=== PATIENT | female | born 1990 | race Caucasian/White ===

== ENCOUNTER 2022-01-16 08:39 | Outpatient (CLI) | payer BC, SELFPAY ==
[2022-01-17 14:49] LABS: Strep B DNA Probe NEGATIVE (Negative)
== END 2022-01-16 08:40 | disposition home or self-care (01) ==
LOC: NFLDREF 08:40
PROVIDERS: PCP Internal Medicine; Visit Provider Registered Nurse
DX: O98.513 Other viral diseases complicating pregnancy, third trimester (principal); Z3A.37 37 weeks gestation of pregnancy
CPT/HCPCS: 76816; 76819; 87081; 87653

== ENCOUNTER 2022-01-23 14:39 | Outpatient (CLI) | payer BC, SELFPAY ==
[2022-01-23 14:51] VITALS: BP 126/75; PULSE 107
[2022-01-23 15:12] VITALS: BP 131/76; PULSE 112
[2022-01-23 15:23] LABS: Creatinine Urine 85.1 mg/dL; Total Protein Urine 18 mg/dL
[2022-01-23 15:25] VITALS: BP 123/72; PULSE 113
[2022-01-23 15:35] LABS: Hematocrit 36.2 % (33.0-51.0); Hemoglobin* 12.6 gm/dL (12.0-16.0); Mean Corpuscular HGB Conc 35 gm/dL (32-36); Mean Corpuscular Hemoglobin 33 pg (26-34); Mean Corpuscular Volume 93 fL (80-100); Platelet Count* 178 K/uL (140-440); Red Blood Count 3.88 m/uL (4.00-5.20); Slide Review Reflex No; White Blood Count* 9.26 K/uL (4.50-11.00)
[2022-01-23 15:39] VITALS: BP 132/85; PULSE 100
[2022-01-23 15:45] LABS: Alanine Aminotransferase* 16 U/L (4-35); Aspartate Amino Transferase* 21 U/L (12-35); Blood Urea Nitrogen* 7 mg/dL (5-24); Creatinine* 0.6 mg/dL (0.5-1.5); Estimated Glomerular Filt Rate 122 ml/min
[2022-01-23 15:55] VITALS: BP 138/81; PULSE 106
--- NOTE | 2022-01-23 16:42 | PC.OBNST ---
NST Note NST Note Start: 01/23/22 14:49 Freq: ONCE Status: Active Protocol: Document 01/23/22 16:19 BECKY (Rec: 01/23/22 16:24 [facility] [place] [id number][facility] NST Note 2 Para (# of births) 0 EDC 02/12/22 Patient Presented with Complaint(s) of Other Other Complaints Elevated BP, rule put preeclampsia Reactive Yes Appropriate for Gestational Age Yes KODI Whitehead Date 01/23/22 Reactive Yes Appropriate for Gestational Age Yes KODI Rose RN Date 01/23/22 OB NST charge Yes Provider Evaluation of EFM Strip: Reactive: [] Appropriate for Gestational Age: [] Comments:
== END 2022-01-23 16:00 | disposition home or self-care (01) ==
LOC: OB OUT 14:41 → OB 14:42 → OB OUT 23:45
PROVIDERS: PCP Internal Medicine; Visit Provider Obstetrics & Gynecology
DX: O99.213 Obesity complicating pregnancy, third trimester (principal); Z3A.37 37 weeks gestation of pregnancy
CPT/HCPCS: 36415; 59025; 82565; 84156; 84450; 84460; 84520; 85027; 99213

== ENCOUNTER 2022-01-24 10:48 | Outpatient (CLI) | payer BC, SELFPAY ==
[2022-01-24] VITALS (9 sets, daily range): BP systolic 126–133; BP diastolic 76–85; PULSE 93–117; RESP 16; TEMP 37.2; O2SAT 97–98
== END 2022-01-24 12:15 | disposition home or self-care (01) ==
LOC: OB OUT 10:48 → OB 10:49
PROVIDERS: PCP Internal Medicine; Visit Provider Obstetrics & Gynecology
DX: O98.513 Other viral diseases complicating pregnancy, third trimester (principal); U07.1 COVID-19; Z3A.37 37 weeks gestation of pregnancy
CPT/HCPCS: 59025; 99213

== ENCOUNTER 2022-01-25 09:30 | Inpatient (IN) | payer BC, MEDICAID, SELFPAY ==
[2022-01-24 23:51] VITALS: BP 140/78; PULSE 106; RESP 18; TEMP 37.4; O2SAT 98
[2022-01-24 23:52] VITALS: BP 140/78; PULSE 100
[2022-01-24 23:53] VITALS: PULSE 103; O2SAT 98
[2022-01-25] VITALS (60 sets, daily range): BP systolic 75–152; BP diastolic 38–107; PULSE 77–129; RESP 20; TEMP 36.4–36.8; O2SAT 91–100; BMI 47.0
[2022-01-25 00:55] LABS: Hemoglobin* 11.6 gm/dL (12.0-16.0); Mean Corpuscular HGB Conc 34 gm/dL (32-36); Mean Corpuscular Hemoglobin 32 pg (26-34); Mean Corpuscular Volume 94 fL (80-100); Platelet Count* 158 K/uL (140-440); Red Blood Count 3.61 m/uL (4.00-5.20); White Blood Count* 8.79 K/uL (4.50-11.00)
[2022-01-25 01:10] LABS: INR 0.96 (0.91-1.10); Prothrombin Time 13.2 Seconds
[2022-01-25 01:11] LABS: Fibrinogen* 495 mg/dL (200-450)
[2022-01-25 01:12] LABS: Total Protein Urine 104 mg/dL
[2022-01-25 01:12] LABS: Alanine Aminotransferase* 15 U/L (4-35); Aspartate Amino Transferase* 20 U/L (12-35); Blood Urea Nitrogen* 6 mg/dL (5-24); Creatinine* 0.5 mg/dL (0.5-1.5); Estimated Glomerular Filt Rate 127 ml/min
[2022-01-25 01:13] LABS: Creatinine Urine 20.9 mg/dL
[2022-01-25] MEDS: CALCIUM CARBONATE 500 MG CHEW PO (02:05)
--- NOTE | 2022-01-25 02:22 | PC.NURSE ---
Danielle Montemayor RNC contacted Sulaiman HAJI regarding PCR of 4.9 which was increased from 0.2 on 01/23/22. aware that pt had BP >140/90 in clinic on 01/23 and BP 140/78 on admission on 01/25. Repeat BP's WNL. Pt now meets criteria for pre-eclampsia. aware that pt has new onset epigastric pain that comes and goes and increased swelling in her hands and feet. MD aware pt has headache as well. Verbal order from MD to d/c pt home and pt to call in AM to schedule IOL next week. Will place pt as observation overnight and discuss possible IOL with MD in AM r/t new diagnosis of pre-eclampsia. Will keep pt on continuous monitoring overnight and monitor BP's hourly per pre-eclampsia protocol. Strict I&O per protocol. Aida Montemayor, RNC
[2022-01-25 04:08] LABS: Slide Review Reflex No
--- NOTE | 2022-01-25 09:17 | W.PM.LDBA ---
Subjective History of Present Illness Time Seen by Provider: 09:18 Date Seen: 01/25/22 Narrative: Emilia is a 32yo with gestational hypertension in third trimester. She presented to triage with complaints of swelling, JONES not treated with analgesics. She denies visual changes, epigastric pain. Blood pressures intermittently elevated; SBP the past day 118-140, DBP 70-90. Urine protein: creatinine ratio today 4.90; remainder of renal labs wnl. AST 20, ALT 15. Platelets 158. Denies vaginal blood, watery fluid. Female fetus, 37w3d GA, is moving actively. complicated by morbid obesity, BMI 43, elevated BP at 13w visit. She has been taking ASA 81 since. GBS negative. Mild intermittent asthma. Anxiety. Patient's full history and physical was dictated by Dr. Bravo on 01.23.2022; please see this for more details. OB - H&P: Exam Physical Exam: Vital signs: Temp Pulse Resp BP Pulse Ox 98 F 99 18 140/78 H 98 01/25/22 07:25 01/25/22 08:50 01/24/22 23:51 01/25/22 08:50 01/24/22 23:53 Constitutional: Constitutional: no acute distress, morbidly obese and cooperative Routine HEENT Exam: Head: Present normal inspection Routine Neck Exam: Neck: Present full ROM Routine Respiratory Exam: Comments: Normal respirations. No accessory muscle use, cough, or wheezing. Routine Cardiovascular Exam: Comments: SBP elevated. Normal pulse peripheral pulses. Mild non-pitting pedal edema. Routine Abdominal Exam: Comments: Gravid, size consistent with dates. Soft, non-tender throughout. Estimated size LGA. Detailed Labor and Delivery Exam: Patient Gravid: yes Dilation (cm): 2 Effacement (%): 30 Cervix position: posterior Consistency: firm Cervical ripeness score: 1 Comments: Uterine irritability, no palpable or subjective contractions. Fetus (Single): Station: -4 Monitor Accelerations: Present Monitor Decelerations: None Group Home Variability: Moderate (11-25) Routine Extremities Exam: Extremities: Present normal inspection Routine Skin Exam: Present intact, warm and normal turgor Routine Neurological Exam: Present alert, CN II-XII intact, normal tone and normal speech Routine Psychiatric Exam: Present normal affect, normal thought process and cooperative OB - Problem Based A/P Additional Plan (1) BMI 40.0-44.9, adult: Status: Acute Plan: Goal is vaginal . Risks and benefits of discussed. (2) Pre-eclampsia affecting childbirth: Problem details: Labile BP the past day: 118/70 to 140/93. Proteinuria evidenced by urinary protein/creatinine ration 4.90. No severe feature. Magnesium sulfate not indicated. Status: Acute Plan: Risks and benefits of induction of labor discussed with patient and , and all questions answered to her satisfaction; she gave verbal consent to proceed with cervical ripening. (3) Large for gestational age fetus: Status: Acute Plan: Goal is vaginal . Risks and benefits of discussed. Plan Admit to Center for induction of labor. Will start with oral misoprostol, consider Cervidil, Cook catheter, AROM, Pitocin. No GBS antibiotics needed.
--- NOTE | 2022-01-25 10:38 | PM.OBPNL ---
Pain Control Date Seen: 01/25/22 Contractions Monitor mode: External Contraction pattern: Irregular Contraction intensity: Mild Pelvic Exam Dilation (cm): 2 Effacement (%): 70 Station: -2 Comments: anterior, soft consistency Assessment and Plan Assessment: induction ongoing Comments: Haskins score 8; ripening not needed. Will begin Pitocin. Comfort measures as desired.
[2022-01-25] MEDS: OXYTOCIN 30 unit/500 ML in NS 30 UNIT/500 ML BAG IVPB (11:04)
[2022-01-25] MEDS: LACTATED RINGERS 1000 ML 1,000 ML 125 ML IV (11:05)
[2022-01-25 11:51] LABS: Mean Corpuscular HGB Conc 34 gm/dL (32-36); Mean Corpuscular Hemoglobin 32 pg (26-34); Mean Corpuscular Volume 94 fL (80-100); Platelet Count* 160 K/uL (140-440); Red Blood Count 3.73 m/uL (4.00-5.20); White Blood Count* 8.31 K/uL (4.50-11.00)
[2022-01-25 11:53] LABS: Slide Review Reflex No
[2022-01-25 12:50] LABS: SARS PCR* Negative SARS-CoV-2 (Negative)
[2022-01-25] MEDS: LIDOCAINE 2% (PF) 5 ML VIAL EPIDURAL (17:54)
[2022-01-25] MEDS: ROPIVACAINE 0.2% 100 ml 100 ML 12 MG EPIDURAL (17:58)
[2022-01-25] MEDS: PHENYLEPHRINE 100 MCG/ML SYRINGE IVP ×3 (18:02→18:21)
--- NOTE | 2022-01-25 18:10 | PM.ANBPRC ---
[facility] Medical History (Updated 01/25/22 @ 10:01 by Magan Hilario MD) Elevated blood pressure reading without diagnosis of hypertension Social History Smoking Status: Never smoker Meds Home Medications and Allergies Home Medications Medication Instructions Recorded Confirmed Type aspirin 81 mg tablet,delayed 81 mg PO QDAY 12/26/21 01/23/22 History release docusate sodium 100 mg capsule 100 mg PO QDAY 12/26/21 01/23/22 History (Colace) polyethylene glycol 3350 17 4 g PO ONCE 12/26/21 01/23/22 History gram/dose oral powder (Miralax) prenat.vits,nahomy,wza-uweg-sjfgx 1 tab PO QDAY 12/26/21 01/23/22 History Allergies Allergy/AdvReac Type Severity Reaction Status Date / Time penicillin V Allergy Severe Swell up Verified 01/23/22 14:14 Results Labs Labs: Laboratory Results - last 24 hr 01/25/22 01/25/22 01/25/22 00:50 00:50 00:50 WBC 8.79 RBC 3.61 L Hgb 11.6 L Hct 34.0 MCV 94 MCH 32 MCHC 34 Plt Count 158 INR 0.96 Fibrinogen 495 H BUN 6 Creatinine 0.5 Estimated GFR 127 AST 20 ALT 15 Urine Creatinine Protein/Creatinin Ratio Urine Total Protein SARS-CoV-2 (PCR) Blood Type Antibody Screen 01/25/22 01/25/22 01/25/22 10:08 11:42 11:42 WBC 8.31 RBC 3.73 L Hgb 12.0 Hct 35.0 MCV 94 MCH 32 MCHC 34 Plt Count 160 INR Fibrinogen BUN Creatinine Estimated GFR AST ALT Urine Creatinine Protein/Creatinin Ratio Urine Total Protein SARS-CoV-2 (PCR) Negative SARS-CoV-2 Blood Type A Positive Antibody Screen NEGATIVE 01/25/22 Unknown WBC RBC Hgb Hct MCV MCH MCHC Plt Count INR Fibrinogen BUN Creatinine Estimated GFR AST ALT Urine Creatinine 20.9 Protein/Creatinin Ratio 4.90 H Urine Total Protein 104 SARS-CoV-2 (PCR) Blood Type Antibody Screen Vital Signs Vital Signs: Last Vital Signs Temp 98.3 F 01/25/22 16:16 Pulse 88 01/25/22 18:09 Resp 20 01/25/22 14:38 BP 106/56 L 01/25/22 18:09 Pulse Ox 97 01/25/22 17:57 Weight: 124.284 kg Height: 162.56 cm Anesthesia Procedures Epidural Insertion Patient Location: OB Start Time: 17:15 Stop Time: 18:15 Start Date: 01/25/22 Stop Date: 01/25/22 Reason for Block: procedure for pain Patient Position: sitting Performed By: Lilian Abreu Preanesthetic Checklist: IV checked, risks and benefits discussed, surgical consent, monitors and equipment checked, pre-op evaluation, timeout performed and anesthesia consent Prep: chlorhexidine gluconate Monitoring: blood pressure monitoring, continuous pulse oximetry and heart rate Approach: midline Vertebral Space: lumbar (1-5) Epidural Technique: ANGÉLICA saline Needle Type: Tuohy needle Injection Technique: continuous catheter (continuous catheter) Needle gauge: 17 Needle Length (cm): 10 cm Needle Insertion Depth (cm): 9 Catheter Gauge: 18 Catheter Type: multi-orifice Catheter at skin depth (cm): 18 Test Dose Result: negative and lidocaine 1.5% with epinephrine 1 to 200,000
[2022-01-25] MEDS: LACTATED RINGERS 1000 ML 1,000 ML 900 ML IV (18:19)
[2022-01-25] MEDS: ePHEDrine sulfate 5 MG/ML inj 10 MG IVP ×2 (18:58→19:04)
[2022-01-25] MEDS: ONDANSETRON 2 MG/ML inj 4 MG IV (19:04)
--- NOTE | 2022-01-25 20:13 | PM.OBPNL ---
Pain Control Time Seen by Provider: 20:13 Date Seen: 01/25/22 Comments: 32yo admitted for IOL due to preeclampsia. Female fetus at 37w3d. Comfortable with epidural. Pitocin off after brief decel to 60s. Contractions Monitor mode: External Contraction frequency: 2 Contraction pattern: Irregular Contraction intensity: Mild Pelvic Exam Dilation (cm): 4 Effacement (%): 70 Station: -1 Fetus (Single) Amniotic Membrane Status: AROM status: Category l Assessment and Plan Assessment: induction ongoing Comments: Consider Pitocin augmentation if inadequate progress.
[2022-01-25] MEDS: LACTATED RINGERS 1000 ML 1,000 ML 115 ML IV (20:31)
[2022-01-26] VITALS (64 sets, daily range): BP systolic 107–137; BP diastolic 57–86; PULSE 81–133; RESP 15–16; TEMP 36.4–37.4; O2SAT 95–98
[2022-01-26] MEDS: ONDANSETRON 2 MG/ML inj 4 MG IV ×2 (00:06→04:47)
[2022-01-26] MEDS: ROPIVACAINE 0.2% 100 ml 100 ML 12 MG EPIDURAL (01:59)
--- NOTE | 2022-01-26 06:50 | PM.OBPNL ---
Pain Control Time Seen by Provider: 06:50 Date Seen: 01/26/22 Pain control: tolerating well and epidural Contractions Monitor mode: External Contraction frequency: 2 Contraction pattern: Regular Contraction intensity: Moderate Pelvic Exam Comments: Emilia has been complete and pushing for 3 hours. In the past 1.5 hour, descent has arrested at +2 station despite maternal repostioning and some rotation. Adequate maternal effort. Large EFW precludes vacuum assistance. Discussion held regarding risks, benefits of relative to continuing current trial of labor for vaginal . All patient questions answered to her satisfaction; she gave signed informed consent to proceed to OR for primary low-transverse section. Charge nurse, OR team, provider notified. IV antibiotics ordered to start immediately. Fetus (Single) Amniotic Membrane Status: AROM status: Category l Assessment and Plan Pitocin rate (mU/min): 6 Comments: To OR for PLTCS because of arrest of descent in Stage 2.
--- NOTE | 2022-01-26 06:59 | PM.PROC ---
Procedure Note Date Seen: 01/26/22 Date of procedure: 01/26/22 Will [facility] bill your pro fee for this procedure?: Yes Pre-op diagnosis: 32yo with arrest of descent during Stage 2 of labor. Procedure: PROCEDURE: Primary low transverse Caesarean section. SURGEON: Sulaiman FACILITIES MANAGER: TERESITA Benavides CARBURETOR EXPERT: Hira . ANESTHESIA: Epidural, postop TAP block. FLUIDS: 700 mL crystalloid QBL: 1150 mL URINE: 100 pink-tinged intraop. SPECIMEN: None FINDINGS: Viable, vigorous female with Apgars of 8 at 1 minute and 9 at 5 minutes; LGA, weighing 3470 g. Anterior 1cm subserosal uterine fibroid. Normal appearing bilateral ovaries and tubes. COMPLICATIONS: None apparent. Procedure Description: After discussion risks and delivery, all patient questions answered to satisfaction. She gave signed informed consent proceed to the OR. IV antibiotics were administered. Patient brought to OR by nayney her epidural in place. She was placed supine on the OR table. Hernandez catheter was placed. She was prepped and draped in the usual fashion. Epidural was bolused; adequate anesthetic affect verified. A time-out was held. A Pfannenstiel skin incision was made with scalpel and carried sharply to the anterior rectus fascia, which was nicked in the midline. The fascial incision was extended bilaterally with curved scissors. The rectus muscles were divided sharply and bluntly with superior/inferior traction. The peritoneum was opened bluntly. The incision was stretched with bilateral finger traction. An Raimro retractor was placed, after confirming absence of maternal tissue between the retractor and the abdominal wall. A midline low transfers hysterotomy was made, and extended bilaterally with bandage scissors. Clear amniotic fluid was noted. Superior pressure on the shoulders did not elevate her head from maternal pelvis; an recruitment assistant's hand through the vagina provided pressure to dislodge crown from the bony pelvis. head was gently guided through the hysterotomy, and body was delivered with assistance of fundal pressure. The was dried and stimulated; her cord was clamped cut. She was brought to the warmer. The uterine cavity was cleared of clot and debris, using moistened sponge. A 2cm left inferior extension of the hysterotomy was closed with running locking 0 Vicryl. The transverse hysterotomy was then closed with running locking 0 Vicryl; a second horizontal imbricating layer of the same suture was placed. Excellent hemostasis was noted. The peritoneum was reapproximated with running 3-0 plain gut. The fascial was closed with running 0 PDS by halves, tying in the midline. The subcutaneous tissue was reinforced with running 3-0 plain gut. The skin was closed with running subcuticular 4-0 Monocryl. A Mepilex island dressing was placed. All instrument, sharp, and sponge counts were correct at the conclusion of the case. The patient tolerated the procedure well; she remained in the OR in stable condition for TAP block by Anesthesia. Anesthesia: regional Surgeon: Magan Hilario MD Pathology: none sent Condition: stable Disposition: floor
[2022-01-26] MEDS: CEFAZOLIN 3 GM in 0.9 % SODIUM CHLORIDE Mini-bag 100 ML IVPB (07:23)
[2022-01-26] MEDS: AZITHROMYCIN 100 MG/ML inj 500 MG IVPB (08:00)
[2022-01-26] MEDS: KETOROLAC 30 MG/ML inj IVP ×2 (08:35→14:50)
--- NOTE | 2022-01-26 09:34 | SUR.OPER ---
THIS SUPERVISOR PIPELINE WAS NOT ABLE TO ADD THE CORRECT MD TO THIS CASE. DR. SIMON BROWN WAS THE ACTUAL DOCTOR FOR THIS CASE NOT DR. TORRES. THIS CORRECTION WILL BE MADE TOMORROW WITH THE HELP OF AN EXPANSE SUPER USER. PATIENT'S BUTT CATHETER WAS PLACED BY THIS SUPERVISOR PIPELINE AT 07:50. TOTAL BUTT OUTPUT FOR THIS CASE WAS 100ML (PER Hira MOORE CRNA).
--- NOTE | 2022-01-26 09:45 | W.ANESCHARGE ---
Anesthesia Charges Start Date/Time Anesthesia Start Date: 01/26/22 Anesthesia Start Time: 07:35 Stop Date/Time Anesthesia Stop Date: 01/26/22 Anesthesia Stop Time: 09:21 Summary Emergency: Yes
--- NOTE | 2022-01-26 09:47 | W.PM.NB ---
Nerve Block Nerve Block Time Seen by Provider: 08:58 Date Seen: 01/26/22 Type of block requested by surgeon for post-operative analgesia: TAP Side: bilateral Time out performed: Yes Verification of patient name: Yes Verification of date of : Yes Name of person performing procedure: mariaelena gabriel Continuous monitoring Was continuous monitoring of O2 sat, B/P, quality assurance monitor, recorded every 15 minutes?: Yes Procedure Checklist: sterile prep, needles and gloves Ultrasound guided. Images saved: Yes Medications given in 5ml increments after negative aspiration: Marcaine (25 ml/side) %: 0.25 mL: 25 Needle gauge: 22 and Exparel (5 ml/side) mL: 5 Needle gauge: 22 Patient tolerated procedure well: Yes Block Charges Block Charge (with Pro Fee): TAP Bilateral Use of Ultrasound Machine for Block: Yes- US Guidance/pain block
[2022-01-26] MEDS: LACTATED RINGERS 1000 ML 1,000 ML 125 ML IV (14:32)
[2022-01-26] MEDS: ENOXAPARIN 40 MG/0.4 ML INJ SUBCUT (21:34)
[2022-01-26] MEDS: ACETAMINOPHEN 500 MG TABLET 1000 MG PO (23:38)
[2022-01-27] VITALS (14 sets, daily range): BP systolic 121–133; BP diastolic 83–89; PULSE 95–111; RESP 15–16; TEMP 36.5–37; O2SAT 97–98
[2022-01-27] MEDS: IBUPROFEN 600 MG TABLET 800 MG PO ×3 (02:30→19:21)
[2022-01-27] MEDS: ACETAMINOPHEN 500 MG TABLET 1000 MG PO ×3 (06:15→15:28)
[2022-01-27 07:21] LABS: Hematocrit 28.9 % (33.0-51.0); Hemoglobin* 9.8 gm/dL (12.0-16.0); Red Blood Count 3.02 m/uL (4.00-5.20); White Blood Count* 12.94 K/uL (4.50-11.00)
[2022-01-27 07:22] LABS: Basophils Percent Auto 0.2 % (0.0-3.0); Eosinophils Percent Auto 0.7 % (0.0-7.0); Immature Granulocytes Pct Auto 1.3 %; Lymphocytes Percent Auto 15.4 % (20-44); Mean Corpuscular HGB Conc 34 gm/dL (32-36); Mean Corpuscular Hemoglobin 33 pg (26-34); Mean Corpuscular Volume 96 fL (80-100); Monocytes Percent Auto 7.4 % (0.0-11.0); Platelet Count* 155 K/uL (140-440); Slide Review Reflex No
--- NOTE | 2022-01-27 07:39 | PM.OBPNCS1 ---
OB - PN: A/P Assessment and Plan (1) BMI 40.0-44.9, adult: Status: Acute (2) Pre-eclampsia affecting childbirth: Problem details: Labile BP the past day: 118/70 to 140/93. Proteinuria evidenced by urinary protein/creatinine ration 4.90. No severe feature. Magnesium sulfate not indicated. Status: Acute (3) Large for gestational age fetus: Status: Acute Plan Plan: routine postop care OB - PN: Subj Subjective Date Seen: 01/27/22 Patient comments: no complaints, pain well controlled, tolerating diet and flatus present status: bottle (started pumping over night) feeding status: expressed and bottle feeding Narrative: The patient feels well.? The pain is well controlled with current medications.?She has not needed PRN narcotics for pain control so far. She has no new complaints.? Urinary output is adequate and she is voiding without difficulty.? Has a good appetite, is tolerating a general diet, is passing flatus, and has not had a bowel movement.? Has?small amount of rubra lochia.? She is ambulating well. She has a history of constipation during . She had used senna BID and Miralax once a day to manage her constipation during and requested to continue this in the post period. She is bottle feeding and started pumping last night. She would like to exclusively pump. She would like to consider discharge tomorrow. OB - PN: Obj Exam Physical Exam: Vital signs: Temp Pulse Resp BP Pulse Ox O2 Del Method 97.8 F 95 16 121/83 97 01/27/22 06:00 01/27/22 06:00 01/27/22 06:00 01/27/22 06:00 01/27/22 06:00 01/27/22 06:00 Constitutional: Constitutional: no acute distress Routine Respiratory Exam: Respiratory: Present CTA bilaterally Routine Cardiovascular Exam: Cardiovascular: Present RRR Routine Abdominal Exam: Fundus: Present firm (U/2) Routine Exam: Patient deferred: external exam Routine Extremities Exam: Extremities: Present full ROM Detailed Upper Extremity Exam: Comments: 1+ swelling in hands bilaterally Routine Back/Spine/Pelvis Exam: Back/Spine: Present full ROM Routine Psychiatric Exam: Psychiatric: Present normal affect and normal thought process Wound Management: Examination: Present dressed, clean, dry and intact Urinary Catheter Management: Urethral: Cath placed during this visit: no Urethral indwelling: No OB - PN: Obj Data Labs Labs: Laboratory Results - last 24 hr 01/27/22 06:25 WBC 12.94 H RBC 3.02 L Hgb 9.8 L Hct 28.9 L MCV 96 MCH 33 MCHC 34 Plt Count 155 Neut % (Auto) 75.0 H Lymph % (Auto) 15.4 L [place] % (Auto) 7.4 Eos % (Auto) 0.7 Baso % (Auto) 0.2 Neut # (Auto) 9.70 H Lymph # (Auto) 2.00 [place] # (Auto) 1.00 H Eos # (Auto) 0.10 Baso # (Auto) 0.00 Abs Immat Gran (auto) 0.20 Imm/Tot Granulo (auto) 1.3
[2022-01-27] MEDS: DOCUSATE SODIUM 100 MG CAPSULE PO ×2 (09:20→21:30)
[2022-01-27] MEDS: polyethylene glycoL 3350 17 GM PACK PO (13:25)
[2022-01-27] MEDS: ENOXAPARIN 40 MG/0.4 ML INJ SUBCUT (22:38)
[2022-01-28 00:50] VITALS: BP 124/80; PULSE 97; RESP 16; TEMP 36.8; O2SAT 97
[2022-01-28] MEDS: IBUPROFEN 600 MG TABLET 800 MG PO (01:20)
--- NOTE | 2022-01-28 03:32 | PC.NURSE ---
Tylenol 1000 mg given at 21:30 01/27/22 by this nurse. Unable to document in AUG.
[2022-01-28 04:40] VITALS: BP 124/85; PULSE 104; RESP 14; TEMP 36.7; O2SAT 98
[2022-01-28] MEDS: ACETAMINOPHEN 500 MG TABLET 1000 MG PO (06:20)
[2022-01-28 07:46] VITALS: TEMP 36.6
[2022-01-28] MEDS: IBUPROFEN 400 MG TABLET 800 MG PO (07:46)
[2022-01-28] MEDS: DOCUSATE SODIUM 100 MG CAPSULE PO (08:24)
[2022-01-28] MEDS: polyethylene glycoL 3350 17 GM PACK PO (08:24)
[2022-01-28 08:28] VITALS: BP 135/90; PULSE 98; RESP 18; TEMP 37.1; O2SAT 97
[2022-01-28] MEDS: TRAMADOL HCL 50 MG TABLET PO (08:36)
[2022-01-28 08:45] VITALS: TEMP 37.1
--- NOTE | 2022-01-28 08:54 | P.DS_ITS ---
DS: Providers Provider Date Seen: 01/28/22 Date of admission: 01/25/22 09:30 Primary care physician: Kim Ware MD Admitting Clinician: Magan Hilario MD Attending Physician on discharge: Carlee Blunt CNM Date of Discharge: 01/28/22 DS: Diagnosis Discharge Diagnosis (1) Status post primary low transverse section: Status: Acute (2) BMI 40.0-44.9, adult: Status: Acute (3) Pre-eclampsia affecting childbirth: Status: Acute Problem details: Labile BP the past day: 118/70 to 140/93. Proteinuria evidenced by urinary protein/creatinine ration 4.90. No severe feature. Magnesium sulfate not indicated. (4) hemorrhage: Status: Acute Exam Const: Vital Signs, click to edit/add: Vital Signs - 24 hr 01/27/22 09:09 01/27/22 09:21 01/27/22 12:55 Temperature 97.7 F 97.7 F 97.8 F Pulse Rate [Blood Pressure Cuff] 103 H 104 H Respiratory Rate 16 15 Blood Pressure [Le ft Arm] Blood Pressure [Ri ght Arm] 130/89 121/85 Pulse Oximetry 97 98 Oxygen Delivery Me thod Room Air Room Air 01/27/22 16:15 01/27/22 19:30 01/28/22 00:50 Temperature 97.7 F 98.6 F 98.3 F Pulse Rate [Blood Pressure Cuff] 111 H 104 H 97 Respiratory Rate 16 16 16 Blood Pressure [Le ft Arm] Blood Pressure [Ri ght Arm] 128/87 133/87 124/80 Pulse Oximetry 98 98 97 Oxygen Delivery Me thod Room Air Room Air Room Air 01/28/22 04:40 01/28/22 07:46 01/28/22 08:28 Temperature 98.1 F 97.9 F 98.7 F Pulse Rate [Blood Pressure Cuff] 104 H Respiratory Rate 14 18 Blood Pressure [Le ft Arm] 124/85 Blood Pressure [Ri ght Arm] 135/90 H Pulse Oximetry 98 97 Oxygen Delivery Me thod Room Air Room Air Documenting provider has reviewed patient's vital signs: yes Common normals: no apparent distress, oriented x3 and alert General appearance: cooperative Nutritional appearance: obese HENMT: Common normals: normocephalic Head and scalp: normocephalic Eye: Common normals: PERRL Pupil: PERRL Neck & C-Spine: Common normals: full ROM and supple Resp: Common normals: normal respiratory effort Cardio: Common normals: regular rate and regular rhythm Rate: regular rate Rhythm: regular rhythm GI: Common normals: Normal to inspection, nondistended, normoactive bowel sounds present, soft to palpation and non-tender Palpation: soft : OB/external & speculum: Yes deferred Uterus: U/U Lochia: small Back & Pelvis: Common normals: thoracic and lumbar spine normal to inspection Neuro: Common normals: oriented x3 Sensorium/orientation: alert Skin: Common normals: no rashes or lesions noted Narrative: Incision: Dressing in place, clean dry and intact. General skin exam: no rashes or lesions noted DS: Data Data Completed and Pending Completed studies during hospitalization: WBC 12.94 K/uL (4.50-11.00) H 01/27/22 06:25 RBC 3.02 m/uL (4.00-5.20) L 01/27/22 06:25 Hgb 9.8 gm/dL (12.0-16.0) L 01/27/22 06:25 Hct 28.9 % (33.0-51.0) L 01/27/22 06:25 MCV 96 fL (80-100) 01/27/22 06:25 MCH 33 pg (26-34) 01/27/22 06:25 MCHC 34 gm/dL (32-36) 01/27/22 06:25 Plt Count 155 K/uL (140-440) 01/27/22 06:25 Neut % (Auto) 75.0 % (42.0-72.0) H 01/27/22 06:25 Lymph % (Auto) 15.4 % (20-44) L 01/27/22 06:25 [place] % (Auto) 7.4 % (0.0-11.0) 01/27/22 06:25 Eos % (Auto) 0.7 % (0.0-7.0) 01/27/22 06:25 Baso % (Auto) 0.2 % (0.0-3.0) 01/27/22 06:25 Neut # (Auto) 9.70 K/uL (1.7-7.0) H 01/27/22 06:25 Lymph # (Auto) 2.00 K/uL (0.90-2.90) 01/27/22 06:25 [place] # (Auto) 1.00 K/UL (0.00-0.90) H 01/27/22 06:25 Eos # (Auto) 0.10 K/uL (0.00-0.50) 01/27/22 06:25 Baso # (Auto) 0.00 K/uL (0.00-0.30) 01/27/22 06:25 Abs Immat Gran (auto) 0.20 K/uL (0.00-0.30) 01/27/22 06:25 Imm/Tot Granulo (auto) 1.3 % 01/27/22 06:25 INR 0.96 (0.91-1.10) 01/25/22 00:50 Fibrinogen 495 mg/dL (200-450) H 01/25/22 00:50 BUN 6 mg/dL (5-24) 01/25/22 00:50 Creatinine 0.5 mg/dL (0.5-1.5) 01/25/22 00:50 Estimated GFR 127 ml/min 01/25/22 00:50 AST 20 U/L (12-35) 01/25/22 00:50 ALT 15 U/L (4-35) 01/25/22 00:50 Urine Creatinine 20.9 mg/dL 01/25/22 Unknown Protein/Creatinin Ratio 4.90 (0-0.19) H 01/25/22 Unknown Urine Total Protein 104 mg/dL 01/25/22 Unknown SARS-CoV-2 (PCR) Negative SARS-CoV-2 (Negative) 01/25/22 10:08 Blood Type A Positive 01/25/22 11:42 Antibody Screen NEGATIVE 01/25/22 11:42 OB - DS: Summary Hospital Course Hospital Course: The patient is a 32 year old G 1 P 0 at 37 6/7 weeks gestation that was admitted to the Center on 01/25/22 for induction of labor due to gestational hypertension. She had an complicated delivery by hemorrhage, QBL 1150. She delivered a viable female infant, Poppy. She is bottle feeding her own breastmilk, pumping. the patient has done well. Peripartum Data Procedures: Procedures Operation Date: 01/26/22 07:15 Actual Procedure Side Surgeon p Section Celia Bravo MD complications: other ( hemorrhage by QBL 1150) [place] Gender: Female Infant Discharge Plan: Home Status at Discharge Functional status at discharge: independent ambulation Overall status at discharge: patient is progressing back to baseline Time Spent with Patient Time attestation: Total time spent providing and/or coordinating discharge services: Time spent: Less than 30 minutes Discharge Plan Discharge Disposition: Home, Self-Care Date of Admission: 01/25/22 09:30 Attending Provider on Discharge: Carlee Blunt Primary Care Provider: Kim Ware Condition: Stable Anticipated Discharge Date/Time: 01/28/22 12:00 Discharge Medications: New docusate sodium 100 mg Capsule 100 mg PO BID PRN (Reason: Constipation) Qty: 90 0RF ibuprofen 400 mg Tablet 600 mg PO Q6H PRN (Reason: Pain) Qty: 60 0RF tramadol 50 mg Tablet 50 mg PO Q4H PRNQty: 20 0RF acetaminophen 500 mg Tablet 1,000 mg PO Q6H PRN (Reason: Pain 1H after NSAID given) Qty: 0 0RF Continued prenat.vits,nahoym,ths-ypsm-ereaq Tablet 1 tab PO QDAY docusate sodium [Colace] 100 mg capsule 100 mg PO QDAY Discontinued polyethylene glycol 3350 [Miralax] 17 gram/dose powder 4 g PO ONCE aspirin 81 mg tablet,delayed release (DR/EC) 81 mg PO QDAY Discharge Orders: Discharge Order (Routine); Ordered 01/28/22 Ordered By: Carlee Blunt Activity Restrictions/Additional Instructions: Discharge instructions were reviewed with the patient including signs and symptoms of infection and home going medications. Lifting Restrictions: 20 pounds for [address] taking pain meds. Off Work or School for 8 weeks. Symptoms to report to doctor: -Bleeding that saturates more than one pad per hour ?-Passing clots larger than the size of a golf ball ?-Pain not relieved by prescribed medication ?-Fever above 100.4 degrees Fahrenheit ?-A foul vaginal odor ?-Difficulty in emotions, mood and functions ?-Thoughts of hurting yourself and/or ?-Painful, reddened area in your breast ?-Any drainage, redness or tenderness in your IV/epidural site ?-Severe headache that doesn't improve after taking medications ?-Changes in vision, including temporary loss of vision, blurred vision, and/or light sensitivity ?-Upper abdominal pain (usually under ribs on the right side) ?-Decrease in urination or painful, frequent urinating ?-Chest pain ?-Shortness of breath ?-Tenderness or pain with redness and/swelling in the calf(s) of your leg Follow Up with [facility] in 1 and 6 weeks. consultation services are available to all mothers and babies for the first year after delivery.? To make an appointment, please call [phone]. Activity Level: Activity as Tolerated Activity Detail: See above Discharge Diet: Regular Follow Up Appointments: [facility] [Provider Group] (1 week for dressing removal and incision check & 6 weeks for routine pp visit.) Forms: MyHealth Info Instructions
== END 2022-01-28 12:35 | disposition home or self-care (01) | DRG 540 ==
LOC: OB OUT 10:29 → OB 10:29
PROVIDERS: Admitting Provider Obstetrics & Gynecology; PCP Internal Medicine; Visit Provider Obstetrics & Gynecology
PROC: 10D00Z1 Extraction of Products of Conception, Low, Open Approach (ICD-10-PCS; CPT 59514; principal; 2022-01-26 06:45)
DX: O14.04 Mild to moderate pre-eclampsia, complicating childbirth (principal); O13.4 Gestational [pregnancy-induced] hypertension without significant proteinuria, complicating childbirth; O72.1 Other immediate postpartum hemorrhage; O32.4XX0 Maternal care for high head at term, not applicable or unspecified; O36.63X0 Maternal care for excessive fetal growth, third trimester, not applicable or unspecified; O34.13 Maternal care for benign tumor of corpus uteri, third trimester; D25.2 Subserosal leiomyoma of uterus; Z37.0 Single live birth; Z3A.37 37 weeks gestation of pregnancy
CPT/HCPCS: 01967; 01968; 36415; 59025; 59200; 64488; 76942; 80053; 82565; 84156; 84450; 84460; 84520; 85018; 85025; 85027; 85384; 85610; 86850; 86900; 86901; 87635; 99140; 99213; A9270; C9290; J0456; J0690; J1650; J1885; J2274; J2370; J2405; J2590; J2795; J3010; J3490; J7120

== ENCOUNTER 2023-01-08 09:37 | Outpatient (CLI) | payer OTHER, MEDICAID, SELFPAY ==
--- NOTE | 2023-01-08 09:45 | CRLHL7_ITS ---
For Patients: As a result of the Cures Act, medical imaging exams and procedure reports are released immediately into your electronic medical record. You may view this report before your referring provider. If you have questions, please contact your health care provider. DIGITAL DIAGNOSTIC RIGHT MAMMOGRAM USING TOMOSYNTHESIS AND COMPUTER-AIDED DETECTION RIGHT BREAST ULTRASOUND CLINICAL HISTORY: RIGHT breast lump. COMPARISON: 01/11/2020, 01/05/2020. TECHNIQUE: Digital RIGHT mammogram in three projections. Tomosynthesis and CAD utilized. Real-time ultrasound imaging of RIGHT breast with imaging documentation. BREAST COMPOSITION: The breast is heterogeneously dense, which may obscure small masses. FINDINGS: Mammogram images demonstrate a similar ovoid density beneath the RIGHT nipple containing a biopsy clip. No additional masses. No adenopathy or suspicious calcifications. Targeted RIGHT breast ultrasound performed in the retroareolar region. There is a circumscribed heterogeneously hypoechoic solid nodule with an associated biopsy clip measuring 2.5 x 1.5 x 2.0 cm. Previously, this measured 2.8 x 1.7 x 2.3 cm. 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 This measures 2.5 x 1.5 x 2.0 cm. RECOMMENDATIONS: Because the lesion is painful, surgical consultation is recommended for consideration of wire localization and surgical excision. Results and recommendations discussed with the patient. BI-RADS Category 2: Benign A lay language report of this examination will be provided to the patient. Dictated by Jimmy Ford MD @ 01/08/2023 1:02:12 PM jj/Dictated by: Jimmy Ford MD @ 01/08/2023 1:02:00 PM (Electronically Signed)
--- NOTE | 2023-01-08 10:15 | CRLHL7_ITS ---
For Patients: As a result of the Cures Act, medical imaging exams and procedure reports are released immediately into your electronic medical record. You may view this report before your referring provider. If you have questions, please contact your health care provider. PLEASE SEE DIGITAL DIAGNOSTIC RIGHT MAMMOGRAM PERFORMED SAME DAY CRL:lalitha doty/Dictated by: Jimmy Ford MD @ 01/08/2023 1:02:00 PM (Electronically Signed)
== END 2023-01-08 09:38 | disposition home or self-care (01) ==
LOC: MAMMO 09:38
PROVIDERS: PCP Internal Medicine; Visit Provider Registered Nurse
DX: N63.10 Unspecified lump in the right breast, unspecified quadrant (principal); N64.4 Mastodynia
CPT/HCPCS: 76642; 77066; G0279

== ENCOUNTER 2023-02-19 06:05 | Day surgery (SDC) | payer OTHER, MEDICAID, SELFPAY ==
[2023-02-19] MEDS: SODIUM CHLORIDE 0.9 % (FLUSH) 10 ML SYRINGE IVF (06:25)
[2023-02-19] MEDS: LACTATED RINGERS 1000 ML 1,000 ML 100 ML IV (06:25)
[2023-02-19 06:28] LABS: Ur HCG Qualitative* Negative (Negative)
[2023-02-19 06:31] VITALS: BP 133/97; PULSE 107; RESP 16; TEMP 36.6; O2SAT 97; BMI 41.1
--- NOTE | 2023-02-19 07:44 | PM.GSPRC ---
Operative Note Pre-op diagnosis: Right breast mass, likely fibroadenoma Post-op diagnosis: Same Type of Procedure: Excision right breast mass Indications: The patient is a 33-year-old female with a right-sided breast mass which had previously been biopsied and found to be a fibroadenoma. This has been stable, however she is having increasing discomfort with it and desires excision. Procedure Description: After discussing the risks and benefits of the procedure, the patient signed informed consent.? The operative site was marked and the patient was brought to the operating room and placed on the operating table in supine position.? Care was taken to pad the patient's pressure points.?? The patient was then given sedation by anesthesia.?? The operative site was then prepped and draped in the usual sterile fashion.? A time-out was then performed. Local anesthetic was injected into the skin and subcutaneous tissue on the lateral border of the areola of the right breast over the palpable mass. A curvilinear incision was made at the area where border. Dissection was taken down to subcutaneous tissue until the mass was encountered. This was identified by palpation. This was excised using cautery. This was inked for margins. It was then sent for mammography to see if the previously placed biopsy clip was present in the mass, which it was. The mass was then sent to pathology. The wound was examined for hemostasis. Hemostasis appeared excellent. The skin was then closed with 3 0 Vicryl dermal and 4-0 Monocryl Monocryl running subcuticular suture. Sterile dressings were then applied. ? The patient was then woken and transported to the recovery area in stable condition. ? The patient tolerated the procedure well. Findings: Right breast mass, surgical specimen x-ray showing clip from prior biopsy. Anesthesia: MAC Surgeon: Liberty Saul MD Estimated blood loss (mL): 1 Additional Specimen Information: Right breast mass Condition: stable Disposition: same day
[2023-02-19] MEDS: BUPIVACAINE 0.25% 30 ML INJECTION (08:05)
--- NOTE | 2023-02-19 08:23 | CRLHL7_ITS ---
For Patients: As a result of the Cures Act, medical imaging exams and procedure reports are released immediately into your electronic medical record. You may view this report before your referring provider. If you have questions, please contact your health care provider. INDICATION: 33 year-old female. Right breast lumpectomy. TECHNIQUE: Two views of the right breast specimen. FINDINGS: The breast specimen contains the mass in question as well as the previously placed biopsy clip. IMPRESSION: Specimen radiograph as described. Dictated by Won Macdonald MD @ 02/19/2023 9:40:29 AM (Electronically Signed)
[2023-02-19 08:30] VITALS: BP 141/114; PULSE 104; RESP 16; TEMP 37.3; O2SAT 99
--- NOTE | 2023-02-19 08:33 | W.ANESCHARGE ---
Anesthesia Charges Start Date/Time Anesthesia Start Date: 02/19/23 Anesthesia Start Time: 07:37 Stop Date/Time Anesthesia Stop Date: 02/19/23 Anesthesia Stop Time: 08:32
--- NOTE | 2023-02-19 08:34 | W.ANESCHARGE ---
Anesthesia Charges Start Date/Time Anesthesia Start Date: 02/19/23 Anesthesia Start Time: 07:37 Stop Date/Time Anesthesia Stop Date: 02/19/23 Anesthesia Stop Time: 08:32
[2023-02-19 08:45] VITALS: BP 137/95; PULSE 84; RESP 16; O2SAT 99
[2023-02-19] MEDS: HYDROCODONE-ACETAMIN 5-325 MG 1 TAB PO (08:45)
[2023-02-19 09:00] VITALS: BP 122/67; PULSE 86; RESP 16; O2SAT 98
[2023-02-19 09:15] VITALS: BP 114/68; PULSE 82; RESP 16; O2SAT 98
== END 2023-02-19 09:29 | disposition home or self-care (01) ==
PROVIDERS: Anesthesiology; PCP Internal Medicine; Visit Provider Surgery
PROC: (CPT 19125; principal; 2023-02-19 07:30)
DX: D24.1 Benign neoplasm of right breast (principal)
CPT/HCPCS: 19125; 00400; 81025; 88307; A9270; J0665; J2250; J2704; J3010; J3370; J3490; J7050; J7120

== ENCOUNTER 2023-03-15 10:37 | Outpatient (CLI) | payer OTHER, MEDICAID, SELFPAY | END 2023-03-15 10:38 | disposition home or self-care (01) | LOC: NFLDREF 03-18 11:21 | PROVIDERS: PCP Internal Medicine; Referring Provider Internal Medicine | DX: R35.0 Frequency of micturition (principal); N39.0 Urinary tract infection, site not specified | CPT/HCPCS: 87086; 87186 ==

== ENCOUNTER 2023-08-17 08:28 | Outpatient (CLI) | payer OTHER, SELFPAY ==
--- OUTSIDE RECORDS SUMMARY | 2023-08-17 08:38 | XMS_ITS | Clinical Summary ---
Author Name Unknown Organization [facility] Address [place], [place] [address] Care Team Providers Care Automobile Designer Name Role Phone Pcp, No Primary Care Provider Unavailabl e Allergies Active Allergy Reactions Criticality Noted Date Comments Amoxicillin 05/06/2007 facial swelling Medications Medication Sig Dispensed Refills Start Date End Date Status norgestimate-ethinyl estradiol (ORTHO TRI-CYCLEN, 28,) 0.18/0.215/0.25 mg-35 mcg (28) tabletIndications:Co ntraception Take 1 tablet by mouth once daily. 3 Package 4 12/08/2013 Active albuterol HFA (PRO-AIR,VENTOLIN,VT OVENTIL) 90 mcg/actuation inhaler Inhale 1 Puff by mouth every 4 hours if needed for Shortness Of Breath or Wheezing. 1 Inhaler 2 12/08/2013 Active Active Problems Problem Noted Date Diagnosed Date Unspecified gastritis and ga stroduodenitis without mention of hemorrhage 06/13/2011 Mild intermittent asthma 02/07/2010 Adjustment disorder with mixed anxiety and depre ssed mood 11/02/2007 Immunizations Name Administration Dates Next Due DTP 01/07/1995, 1,1989,1989 ,1989 Hepatitis A (Adult) 02/06/2010,02/11/2008 Hepatitis B (Peds) 01/01/1994,11/20/1993, 993 Human Papilloma Virus Vaccine 11/15/2007, 008,05/06/2007 Influenza, IIV3 (Age >=3 years) 05/06/2007 MMR 01/06/2000,08/30/1990 Meningococcal Vaccine (Menactra) 02/11/2008 Oral Polio Vaccine 01/07/1995, 1,1989,1989 ,1989 Tdap 02/11/2008 Varicella Vaccine 09/28/1991 Family History Medical History Relation Name Comments Good Health Father Diabetes Maternal Grandfather Heart Disease Maternal Grandfather deceas ed, age 70s Cancer Maternal Grandmother d. age 80s Other Mother SLEEP APNEA Thyroid Disease Mother Heart Disease Paternal Grandfather deceas ed [place], age 64. Good Health Paternal Grandmother Good Health Sister 2 Relation Name Status Comments Father Alive Maternal Grandfather Maternal Grandmother Mother Alive Paternal Grandfather Paternal Grandmother Alive Sister 1 Alive Sister 2 Social History Tobacco Use Types Packs/Day Years Used Date Smoking Tobacco: Never Smokeless Tobacco: Never Tobacco Cessation:Counseling Given: Yes Alcohol Use Standard Drinks/Week Comments Yes 0 (1 standard drink = 0.6 oz pure alcohol) occasional; couple drinks per month. Sex and Gender Information Value Date Recorded Sex Assigned at Not on file Gender Identity Not on file Sexual Orientation Not on file Obstetrics History Para Term AB IAB SAB Ectopic Multiple Livin g Live Births 0 0 0 0 0 0 0 0 0 0 Last Filed Vital Signs Vital Sign Reading Time Taken Comments Blood Pressure 119/82 12/08/2013 8:46 AM CDT Pulse 86 12/08/2013 8:46 AM CDT Temperature 36.9 ??C (98.5 ??F) 11/22/2008 1:44 PM CD T Respiratory Rate 18 01/20/2011 3:20 PM CDT Oxygen Saturation - - Inhaled Oxygen Concentration - - Weight 108.4 kg (239 lb) 12/08/2013 8:46 AM CDT Height 165.7 cm (5' 5.24) 12/08/2013 8:46 AM CD T Body Mass Index 39.48 12/08/2013 8:46 AM CDT Plan of Treatment Health Maintenance Due Date Last Done Comments COVID-19 vaccine series (#1) 1989 Depression screening for age 12+ 2001 HIV for age 15-65 01/25/2004 BMI (ht and wt on same day) for age 18+ 2007 Hepatitis C screening for age 18-79 2007 Pap test for age 21-65 12/28/2015 3 (Completed outside of [facility]) Tetanus booster 02/07/2020 02/06/2010, 02/11/2008 Influenza for age 9-49 02/27/2023 05/06/2007 Tdap Completed 02/11/2008 Pneumococcal series for age 6-64 Aged Out No longer eligible based on patient's age to complete this topic Care Teams Automobile Designer Relationship Specialty Start Date End Date Pcp, No . PCP - General 03/09/12
== END 2023-08-17 08:29 | disposition home or self-care (01) ==
PROVIDERS: PCP Family Medicine; Visit Provider Family Medicine
DX: Z00.00 Encounter for general adult medical examination without abnormal findings (principal); N92.0 Excessive and frequent menstruation with regular cycle; R00.0 Tachycardia, unspecified; Z13.6 Encounter for screening for cardiovascular disorders
CPT/HCPCS: 80053; 80061; 84443

== ENCOUNTER 2023-09-04 12:41 | Outpatient (CLI) | payer OTHER, MEDICAID, SELFPAY ==
--- NOTE | 2023-09-04 13:00 | US_ITS ---
Patient: PATRICIA HERNANDEZ Facility:?[facility] Patient ID:?[id number] Site Patient ID:?[id number]. Site :?1990 Study:?US-Pelvis PELVIS TA & TV-09/04/2023 1:31:23 PM Ordering Physician:?JENNIFER HOUSER Final Report: CLINICAL HISTORY: Excessive frequent menstruation TECHNIQUE: Real time, huff scale images were acquired of the pelvis using a transabdominal and transvaginal approach. Color Doppler analysis was performed of the ovaries. FINDINGS: The uterus measures 10.5 x 4.6 x 5.4 endometrium measures 6 millimeters. The right ovary measures 3.4 x 1.8 x 1.7 centimeters left ovary measures 2.7 x 1.6 x 1.9 centimeters. Both ovaries appear unremarkable. Normal blood flow on color Doppler. Hypoechoic area in the sub endometrium measuring 6 millimeters could represent a subendometrial cyst. IMPRESSION: 1. 6 millimeter endometrial stripe. Dictated by Irene Mackenzie MD @ 09/06/2023 8:33:13 PM Signed by:?Irene Mackenzie MD @09/06/2023 8:33:13 PM (Electronic Signature)
== END 2023-09-04 12:42 | disposition home or self-care (01) ==
LOC: US 12:42
PROVIDERS: PCP Family Medicine; Visit Provider Family Medicine
DX: N92.0 Excessive and frequent menstruation with regular cycle (principal)
CPT/HCPCS: 76830; 76856

== ENCOUNTER 2023-12-16 12:49 | Outpatient (CLI) | payer OTHER, SELFPAY ==
--- OUTSIDE RECORDS SUMMARY | 2023-12-16 12:51 | XMS_ITS | Clinical Summary ---
Author Organization [facility] Address [place], [place] [address] Care Team Providers Care Balance Assembler Name Role Phone Pcp, No Primary Care Provider Unavailabl e Allergies Active Allergy Reactions Criticality Noted Date Comments Amoxicillin 05/06/2007 facial swelling Medications Medication Sig Dispensed Refills Start Date End Date Status norgestimate-ethinyl estradiol (ORTHO TRI-CYCLEN, 28,) 0.18/0.215/0.25 mg-35 mcg (28) tabletIndications:Co ntraception Take 1 tablet by mouth once daily. 3 Package 4 12/08/2013 Active albuterol HFA (PRO-AIR,VENTOLIN,ME OVENTIL) 90 mcg/actuation inhaler Inhale 1 Puff by mouth every 4 hours if needed for Shortness Of Breath or Wheezing. 1 Inhaler 2 12/08/2013 Active Active Problems Problem Noted Date Diagnosed Date Unspecified gastritis and ga stroduodenitis without mention of hemorrhage 06/13/2011 Mild intermittent asthma 02/07/2010 Adjustment disorder with mixed anxiety and depre ssed mood 11/02/2007 Encounters Date Type Department Care Team Description 11/05/2023 Orders Only [facility] [address] [place] [address] Fabiola Cook MD 1 scan: (1-Ord) ELIJAH FINAL REPORT 10/15/2023 3:00 PM CDT Office Visit [facility] [address] [place] [address] Fabiola Cook MD from Last 3 Months Immunizations Name Administration Dates Next Due DTP [...] Mother Heart Disease Paternal Grandfather deceas ed [place], age 64. Good Health Paternal Grandmother Good [...] pure alcohol) occasional; couple drinks per month. Social Connections Answer Date Recorded Frequency of Communication with Friends and Fami ly Not on file 10/15/2023 Sex and Gender Information Value Date Recorded [...] 12/08/2013 8:46 AM CDT Plan of Treatment Upcoming Encounters Date Type Department Care Team (Late st Contact Info) Description 12/16/2023 1:00 PM CDT Ancillary Procedure [facility] [address] [place] [address] Health Maintenance Due Date Last Done Comments Depression screening for age 12+ 2001 HIV for age 15-65 01/25/2004 BMI (ht and wt on same day) for age 18+ 2007 Hepatitis C screening for age 18-79 2007 Pap test for age 21-65 12/28/2015 3 (Completed outside of [facility]) Tetanus booster 02/07/2020 02/06/2010, 02/11/2008 COVID-19 vaccine series (2022-24 season) 2023 Influenza for age 9-49 02/28/2024 05/06/2007 Tdap Completed 02/11/2008 Pneumococcal series for age 6-64 Aged Out No longer eligible based on patient's age to complete this topic Procedures Procedure Name Priority Date/Time Associated Diagnosis Comments EXTENDED HOLTER Routine 11/05/2023 Tachycardia, unspecified from Last 3 Months Results * EXTENDED HOLTER (11/05/2023) Fabiola Cook MD CARDIAC SERVICES ORD from Last 3 Months Care Teams Balance Assembler Relationship Specialty Start Date End Date Pcp, No . PCP - General 03/09/12
== END 2023-12-16 12:50 | disposition home or self-care (01) ==
LOC: RAD 12:50
PROVIDERS: PCP Family Medicine; Visit Provider Internal Medicine
DX: R00.0 Tachycardia, unspecified (principal); I35.1 Nonrheumatic aortic (valve) insufficiency; I34.0 Nonrheumatic mitral (valve) insufficiency
CPT/HCPCS: 93306

== ENCOUNTER 2024-12-09 10:10 | Outpatient (CLI) | payer OTHER, SELFPAY | END 2024-12-09 10:11 | disposition home or self-care (01) | LOC: NFLDREF 12-12 21:31 | PROVIDERS: PCP Family Medicine; Referring Provider Family Medicine; Visit Provider Family Medicine | DX: N92.0 Excessive and frequent menstruation with regular cycle (principal); F41.9 Anxiety disorder, unspecified; Z83.49 Family history of other endocrine, nutritional and metabolic diseases; Z83.3 Family history of diabetes mellitus; Z13.6 Encounter for screening for cardiovascular disorders | CPT/HCPCS: 80053; 80061; 84443; 86376 ==